=== PATIENT | male | born 1960 | race Caucasian/White ===

== ENCOUNTER 2017-11-07 11:18 | Emergency (ER) | payer MEDICAID ==
[~2017-11-07] VITALS: Ht 172.7 cm; Wt 74.8 kg
[~2017-11-07 11:18] MED LIST: AMLO10TA2 PO; ENAL20TA70 PO; TAMS0.4C36 PO
[2017-11-07 12:49] VITALS: BP 150/95
[2017-11-07] MEDS ORDERED: diphenhdrAMINE HCL 50 MG/1 ML VL IM ONE (13:00)
[2017-11-07] MEDS ORDERED: EPINEPHrine HCL 1 MG/1 ML AMP SC ONE (13:00)
[2017-11-07] MEDS ORDERED: methylPREDNISolone SOD SUCC 125 MG/2 ML VL IM ONE (13:00)
== END 2017-11-07 13:45 | disposition home or self-care (01) ==
LOC: ER 11:18
DX: L25.8 Unspecified contact dermatitis due to other agents (principal); T49.2X5A Adverse effect of local astringents and local detergents, initial encounter; I10 Essential (primary) hypertension; Y92.89 Other specified places as the place of occurrence of the external cause
CPT/HCPCS: 96372; 99284; J0171; J1200; J2930

== ENCOUNTER 2021-10-23 05:05 | Emergency (ER) | payer MEDICAID ==
[~2021-10-23] VITALS: Ht 175.3 cm; Wt 83.9 kg
[~2021-10-23 05:05] MED LIST changes: +AMLO-496 PO; -AMLO10TA2 PO; -ENAL20TA70 PO; +ENAL20TA8 PO
[2021-10-23 07:25] VITALS: BP 147/96
[2021-10-23 07:45] LABS: Urine Bacteria MANY /hpf (None Seen); Urine Blood 2+ /uL (Negative); Urine Mucus FEW (None Seen); Urine Specific Gravity 1.015 (1.001-1.035); Urine WBC 2420 /hpf (0 - 3); Urine WBC Clumps PRESENT /hpf (None Seen)
[2021-10-23] MEDS ORDERED: cefTRIAXone 1GM/50ML D5W 50 ML IV ONE (08:00)
[2021-10-23] MEDS ORDERED: CIPROFLOXACIN 400MG/200ML 200 ML IV ONE (08:00)
[2021-10-23] MEDS ORDERED: SODIUM CHLORIDE 0.9% 1,000 ML IV ONE (08:15)
== END 2021-10-23 10:12 | disposition home or self-care (01) ==
LOC: ER 05:05
DX: N39.0 Urinary tract infection, site not specified (principal); I10 Essential (primary) hypertension; Z79.899 Other long term (current) drug therapy; Z88.2 Allergy status to sulfonamides
CPT/HCPCS: 81001; 96365; 96367; 99284; J0696; J0744; J7030

== ENCOUNTER 2022-01-04 06:19 | Emergency (ER) | payer MEDICAID ==
[~2022-01-04] VITALS: Ht 172.7 cm; Wt 81.6 kg
[2022-01-04 07:32] LABS: Albumin 3.7 g/dL (3.4-5.0); Calcium 8.4 mg/dL (8.5-10.1); Potassium 3.2 mmol/L (3.5-5.1)
[2022-01-04 07:36] LABS: Basophils # (auto) 0 10 ^3/uL (0-0.2); Basophils % (auto) 0.6 % (0.0-2.0); Eosinophils # (auto) 0 10 ^3/uL (0-0.8); Eosinophils % (auto) 0.7 % (0.0-7.0); Hematocrit 37.2 % (41.0-53.0); Hemoglobin 13.1 g/dL (13.5-17.5); Lymphocytes # (auto) 1.2 10 ^3/uL (0.4-5.4); Mean Corpuscular Hemoglobin 31.1 pg (28.0-32.0); Mean Corpuscular Hgb Conc. 35.2 g/dL (32.0-36.0); Mean Corpuscular Volume 88.4 fL (80.0-100.0); Monocytes # (auto) 0.8 10 ^3/uL (0-1.3); Neutrophils # (auto) 4.4 10 ^3/uL (1.6-8.6); Neutrophils % (auto) 67.7 % (37.0-80.0); Nucleated Red Blood Cells % 0.1 %; Red Cell Distribution Width 13.2 % (11.8-14.3); White Blood Cell 6.4 10^3/uL (4.4-10.8)
[2022-01-04 07:39] LABS: BUN/Creatinine Ratio 12.5; Bilirubin, Total 1.1 mg/dL (0.2-1.0); Total Protein 7.3 g/dL (6.4-8.2)
[2022-01-04 07:59] LABS: Urine Bacteria MANY /hpf (None Seen); Urine Blood 2+ /uL (Negative); Urine Specific Gravity 1.017 (1.001-1.035); Urine WBC 4084 /hpf (0 - 3); Urine WBC Clumps PRESENT /hpf (None Seen)
[2022-01-04] MEDS ORDERED: POTASSIUM EFFERVESENT TAB 25 MEQ PO ONE (08:15)
[2022-01-04] MEDS ORDERED: IOHEXOL 300 MG/ML 100ML BOTTLE IJ ONE (08:43)
[2022-01-04] MEDS ORDERED: CIPR-173 PO (10:58)
[2022-01-04 11:06] VITALS: BP 145/91
== END 2022-01-04 11:18 | disposition home or self-care (01) ==
LOC: ER 06:19
DX: N39.0 Urinary tract infection, site not specified (principal); E87.6 Hypokalemia; K59.00 Constipation, unspecified; I10 Essential (primary) hypertension
CPT/HCPCS: 36415; 74177; 80053; 81001; 83690; 84484; 85025; 93005; 99285; Q9967

== ENCOUNTER 2023-08-07 12:42 | Emergency (ER) | payer MEDICAID ==
[~2023-08-07] VITALS: Ht 172.7 cm; Wt 83.0 kg
[~2023-08-07 12:42] MED LIST changes: -AMLO-496 PO; +AMLO1TAB23 PO; +CIPR-173 PO; +ENAL1TAB48 PO; -ENAL20TA8 PO
[2023-08-07] MEDS ORDERED: KETOROLAC TROMETH 30 MG/ML 1ML VIAL IV ONE (13:15)
[2023-08-07 13:21] LABS: Basophils # (auto) 0 10 ^3/uL (0-0.2); Basophils % (auto) 0.4 % (0.0-2.0); Eosinophils # (auto) 0 10 ^3/uL (0-0.8); Eosinophils % (auto) 0.6 % (0.0-7.0); Hematocrit 40.2 % (41.0-53.0); Hemoglobin 14.1 g/dL (13.5-17.5); Lymphocytes # (auto) 1.3 10 ^3/uL (0.4-5.4); Lymphocytes % (auto) 16.1 % (10.0-50.0); Mean Corpuscular Hemoglobin 32.1 pg (28.0-32.0); Mean Corpuscular Volume 91.7 fL (80.0-100.0); Monocytes # (auto) 0.9 10 ^3/uL (0-1.3); Monocytes % (auto) 10.6 % (0.0-12.0); Neutrophils # (auto) 5.9 10 ^3/uL (1.6-8.6); Neutrophils % (auto) 72.3 % (37.0-80.0); Nucleated Red Blood Cells % 0.2 %; Red Blood Cells 4.39 10^6/uL (4.5-5.90); Red Cell Distribution Width 12.8 % (11.8-14.3); White Blood Cell 8.1 10^3/uL (4.4-10.8)
[2023-08-07 13:40] LABS: Urine Bacteria NONE SEEN /hpf (None Seen); Urine Blood Negative /uL (Negative); Urine Clarity Clear (Clear); Urine Color Yellow (Yellow); Urine Protein, UAD TRACE (Negative); Urine Urobilinogen Normal (Negative); Urine WBC <1 /hpf (0 - 3); Urine pH 7.5 (5.0-8.0)
[2023-08-07 13:50] LABS: Alanine Aminotransferase 121 U/L (7-40); Albumin 4.9 g/dL (3.2-4.8); Alkaline Phosphatase 143 U/L (46-116); Anion Gap 7 (5-15); Aspartate Aminotransferase 136 U/L (13-40); BUN/Creatinine Ratio 8.5 (10.0-20.0); Blood Urea Nitrogen 10 mg/dL (9-23); Calcium 9.7 mg/dL (8.7-10.4); Carbon Dioxide 29 mmol/L (20-30); Chloride 100 mmol/L (98-107); Glucose 183 mg/dL (74-106); Potassium 3.5 mmol/L (3.5-5.1); Sodium 136 mmol/L (136-145)
[2023-08-07 13:51] LABS: Bilirubin, Total 1.2 mg/dL (0.2-1.0); Total Protein 7.6 g/dL (5.7-8.2)
[2023-08-07] MEDS ORDERED: IOHEXOL 300 MG/ML 100ML BOTTLE IJ ONE (14:18)
[2023-08-07 15:00] VITALS: PULSE 62; RESP 19; TEMP 98.3; O2SAT 94
[2023-08-07] MEDS ORDERED: OXY5T GT ×3 (16:48→17:28)
[2023-08-07 17:40] VITALS: BP 173/110; PULSE 67; RESP 14; O2SAT 95
== END 2023-08-07 17:46 | disposition home or self-care (01) ==
LOC: ER 12:42
DX: G89.3 Neoplasm related pain (acute) (chronic) (principal); I10 Essential (primary) hypertension; Z85.9 Personal history of malignant neoplasm, unspecified; Z79.899 Other long term (current) drug therapy
CPT/HCPCS: 36415; 74177; 80053; 81001; 85025; 96374; 99285; J1885; Q9967

== ENCOUNTER 2023-08-16 20:35 | Inpatient (IN) | payer MEDICAID ==
[~2023-08-16] VITALS: Ht 170.2 cm; Wt 86.4 kg
[~2023-08-16 20:35] MED LIST changes: +OXY5T GT
[2023-08-16 21:53] LABS: Urine Bacteria NONE SEEN /hpf (None Seen); Urine Blood Negative /uL (Negative); Urine Clarity Clear (Clear); Urine Color Yellow (Yellow); Urine Hyaline Cast MOD /lpf (0 - 2); Urine Protein, UAD TRACE (Negative); Urine Specific Gravity 1.013 (1.001-1.035); Urine Urobilinogen Normal (Negative); Urine WBC 4 /hpf (0 - 3)
[2023-08-16 22:15] LABS: Basophils # (auto) 0.1 10 ^3/uL (0-0.2); Basophils % (auto) 0.6 % (0.0-2.0); Eosinophils # (auto) 0 10 ^3/uL (0-0.8); Eosinophils % (auto) 0.2 % (0.0-7.0); Hematocrit 38.8 % (41.0-53.0); Hemoglobin 13.4 g/dL (13.5-17.5); Lymphocytes # (auto) 0.6 10 ^3/uL (0.4-5.4); Mean Corpuscular Hemoglobin 31.6 pg (28.0-32.0); Mean Corpuscular Hgb Conc. 34.5 g/dL (32.0-36.0); Mean Corpuscular Volume 91.6 fL (80.0-100.0); Monocytes # (auto) 1.2 10 ^3/uL (0-1.3); Monocytes % (auto) 9.3 % (0.0-12.0); Neutrophils # (auto) 10.9 10 ^3/uL (1.6-8.6); Neutrophils % (auto) 84.9 % (37.0-80.0); Nucleated Red Blood Cells % 0.2 %; Red Blood Cells 4.23 10^6/uL (4.5-5.90); Red Cell Distribution Width 13.2 % (11.8-14.3); White Blood Cell 12.8 10^3/uL (4.4-10.8)
[2023-08-16 22:30] LABS: Alanine Aminotransferase 237 U/L (7-40); Albumin 3.9 g/dL (3.2-4.8); Alkaline Phosphatase 236 U/L (46-116); Anion Gap 8 (5-15); Aspartate Aminotransferase 242 U/L (13-40); BUN/Creatinine Ratio 14.4 (10.0-20.0); Bilirubin, Total 2.9 mg/dL (0.2-1.0); Blood Urea Nitrogen 14 mg/dL (9-23); Calcium 9.1 mg/dL (8.7-10.4); Carbon Dioxide 28 mmol/L (20-30); Chloride 94 mmol/L (98-107); Glucose 138 mg/dL (74-106); Lipase 29 U/L (12-53); Potassium 3.3 mmol/L (3.5-5.1); Sodium 130 mmol/L (136-145); Total Protein 6.4 g/dL (5.7-8.2)
[2023-08-16 22:35] LABS: INR 1.14 (0.9-1.15); Partial Thromboplastin Time 27.4 SEC (24.5-34.5); Prothrombin Time 11.9 sec (9.3-11.8)
[2023-08-17] MEDS ORDERED: MORPHINE SULFATE 4 MG/ML SYR/VIAL IM ONE (01:15)
[2023-08-17] MEDS ORDERED: ONDANSETRON HCL 4 MG/2 ML VIAL IM ONE (01:15)
[2023-08-17] MEDS ORDERED: ENALAPRIL MALEATE 10 MG TAB PO ONE (01:30)
[2023-08-17] MEDS ORDERED: amLODIPine BESYLATE 5 MG TAB PO ONE (01:30)
[2023-08-17] MEDS ORDERED: POTASSIUM EFFERVESENT TAB 25 MEQ PO ONE (02:45)
[2023-08-17] MEDS ORDERED: ONDANSETRON HCL 4 MG/2 ML VIAL IV PRN (04:15)
[2023-08-17] MEDS ORDERED: DOCUSATE SOD 100 MG CAP PO PRN (04:15)
[2023-08-17] MEDS ORDERED: MORPHINE SULFATE INJ 2 MG/ml SYRG IV PRN ×2 (04:15→05:00)
[2023-08-17] MEDS ORDERED: HYDROcodone-ACET 5/325MG TAB PO PRN (04:15)
[2023-08-17] MEDS ORDERED: IBUPROFEN 600 MG TAB PO PRN (04:15)
[2023-08-17] MEDS: SODIUM CHLORIDE 0.9% 1,000 ML IV SCH ×2 (04:25→17:48)
[2023-08-17 04:34] LABS: Hematocrit 37.9 % (41.0-53.0); Hemoglobin 13.4 g/dL (13.5-17.5); Mean Corpuscular Hemoglobin 32.3 pg (28.0-32.0); Mean Corpuscular Hgb Conc. 35.5 g/dL (32.0-36.0); Red Blood Cells 4.16 10^6/uL (4.5-5.90); Red Cell Distribution Width 13.2 % (11.8-14.3); White Blood Cell 11.4 10^3/uL (4.4-10.8)
[2023-08-17 04:47] LABS: Band Neutrophils % (manual) 0; Basophils % (manual) 0 (0.0-2.0); Blast Cells 0; Eosinophils % (manual) 0 (0-7); Metamyelocytes % 0; Promyelocytes % 0; Reactive Lymphocytes 0
[2023-08-17 04:51] LABS: Alanine Aminotransferase 248 U/L (7-40); Albumin 4.2 g/dL (3.2-4.8); Alkaline Phosphatase 247 U/L (46-116); Anion Gap 6 (5-15); Aspartate Aminotransferase 268 U/L (13-40); BUN/Creatinine Ratio 15.5 (10.0-20.0); Blood Urea Nitrogen 15 mg/dL (9-23); Calcium 9.4 mg/dL (8.7-10.4); Carbon Dioxide 31 mmol/L (20-30); Chloride 92 mmol/L (98-107); Glucose 186 mg/dL (74-106); Potassium 4.3 mmol/L (3.5-5.1); Sodium 129 mmol/L (136-145)
[2023-08-17 04:52] LABS: Bilirubin, Total 2.7 mg/dL (0.2-1.0); Total Protein 7.2 g/dL (5.7-8.2)
[2023-08-17] MEDS ORDERED: NITROGLYCERIN 0.4 MG SL TAB SL PRN (05:00)
[2023-08-17] MEDS: cefTRIAXone 1GM/50ML D5W 50 ML IV SCH (05:09)
[2023-08-17] MEDS ORDERED: MORPHINE SULFATE INJ 2 MG/ml SYRG IM ONE (07:00)
[2023-08-17 09:31] VITALS: PULSE 70; RESP 15; O2SAT 94
[2023-08-17] MEDS: ENALAPRIL MALEATE 10 MG TAB PO SCH ×2 (10:15→21:32)
[2023-08-17 12:55] LABS: Lymphocytes % (manual) 7 (10.0-50.0); Monocytes % (manual) 4 (0-12); Myelocytes % 4; Platelet Estimate Adequate
[2023-08-17 15:16] LABS: Urine Bacteria NONE SEEN /hpf (None Seen); Urine Blood Negative /uL (Negative); Urine Clarity Clear (Clear); Urine Color Yellow (Yellow); Urine Protein, UAD Negative (Negative); Urine Specific Gravity 1.006 (1.001-1.035); Urine Urobilinogen Normal (Negative); Urine WBC 1 /hpf (0 - 3); Urine pH 6.5 (5.0-8.0)
[2023-08-17] MEDS: hydrALAZINE HCL 20 MG/ML VL IV PRN ×2 (15:16→23:38)
[2023-08-17 17:00] VITALS: BP 146/98; PULSE 97; RESP 19; TEMP 98.2; O2SAT 93
[2023-08-17] MEDS: TAMSULOSIN HYDROCHLORIDE 0.4 MG CAP PO SCH (17:47)
[2023-08-17] MEDS ORDERED: TERA2CAP45 PO (19:01)
[2023-08-17] MEDS ORDERED: METO-289 PO (19:01)
[2023-08-17 20:00] VITALS: BP 172/87; PULSE 112; PULSE 87; RESP 18; RESP 20; TEMP 98.1; O2SAT 96
[2023-08-17] MEDS: metroNIDAZOLE 500MG/100ML 100 ML IV SCH (21:21)
[2023-08-17 22:00] VITALS: BP 170/95; PULSE 77; RESP 16; TEMP 98.1; O2SAT 94
[2023-08-17] MEDS: HYDROmorphone HCL 2 MG/ML VL/or syr IV PRN (22:40)
[2023-08-18] VITALS (7 sets, daily range): BP systolic 165–186; BP diastolic 77–98; PULSE 69–97; RESP 16–19; TEMP 97.7–98.6; O2SAT 90–94
[2023-08-18] MEDS: SODIUM CHLORIDE 0.9% 1,000 ML IV SCH ×2 (03:05→23:09)
[2023-08-18] MEDS: metroNIDAZOLE 500MG/100ML 100 ML IV SCH ×3 (05:37→22:21)
[2023-08-18] MEDS: hydrALAZINE HCL 20 MG/ML VL IV PRN ×4 (05:47→21:00)
[2023-08-18 06:36] LABS: Basophils # (auto) 0 10 ^3/uL (0-0.2); Basophils % (auto) 0.2 % (0.0-2.0); Eosinophils # (auto) 0 10 ^3/uL (0-0.8); Eosinophils % (auto) 0.1 % (0.0-7.0); Hematocrit 38.6 % (41.0-53.0); Hemoglobin 13.3 g/dL (13.5-17.5); Lymphocytes # (auto) 0.7 10 ^3/uL (0.4-5.4); Lymphocytes % (auto) 5.3 % (10.0-50.0); Mean Corpuscular Hemoglobin 31.8 pg (28.0-32.0); Mean Corpuscular Hgb Conc. 34.5 g/dL (32.0-36.0); Mean Corpuscular Volume 92.4 fL (80.0-100.0); Monocytes # (auto) 1.3 10 ^3/uL (0-1.3); Monocytes % (auto) 10.5 % (0.0-12.0); Neutrophils # (auto) 10.5 10 ^3/uL (1.6-8.6); Neutrophils % (auto) 83.9 % (37.0-80.0); Nucleated Red Blood Cells % 0.2 %; Red Blood Cells 4.18 10^6/uL (4.5-5.90); Red Cell Distribution Width 13.2 % (11.8-14.3); White Blood Cell 12.5 10^3/uL (4.4-10.8)
[2023-08-18 06:54] LABS: Alanine Aminotransferase 207 U/L (7-40); Albumin 3.8 g/dL (3.2-4.8); Alkaline Phosphatase 213 U/L (46-116); Anion Gap 8 (5-15); Aspartate Aminotransferase 195 U/L (13-40); BUN/Creatinine Ratio 9.2 (10.0-20.0); Bilirubin, Total 3.8 mg/dL (0.2-1.0); Blood Urea Nitrogen 7 mg/dL (9-23); Calcium 8.8 mg/dL (8.7-10.4); Carbon Dioxide 28 mmol/L (20-30); Chloride 100 mmol/L (98-107); Glucose 190 mg/dL (74-106); Magnesium 2.5 mg/dL (1.6-2.6); Potassium 3.1 mmol/L (3.5-5.1); Total Protein 6.6 g/dL (5.7-8.2)
[2023-08-18 07:08] LABS: Sodium 136 mmol/L (136-145)
[2023-08-18] MEDS: amLODIPine BESYLATE 5 MG TAB PO SCH (09:43)
[2023-08-18] MEDS: ENALAPRIL MALEATE 10 MG TAB PO SCH ×2 (09:44→22:21)
[2023-08-18] MEDS: cefTRIAXone 1GM/50ML D5W 50 ML IV SCH (09:44)
[2023-08-18] MEDS ORDERED: POTASSIUM CHL 20 Meq TABLET PO ONE (11:45)
[2023-08-18] MEDS ORDERED: LORazepam 2MG/ML-1ML VIAL IV ONE (13:45)
[2023-08-18] MEDS: TAMSULOSIN HYDROCHLORIDE 0.4 MG CAP PO SCH (17:21)
[2023-08-18] MEDS: KETOROLAC TROMETH 30 MG/ML 1ML VIAL IV PRN (18:47)
[2023-08-19] MEDS: hydrALAZINE HCL 20 MG/ML VL IV PRN (04:06)
[2023-08-19 04:52] VITALS: BP 180/103; PULSE 85; RESP 16; TEMP 98.4; O2SAT 94
[2023-08-19] MEDS: metroNIDAZOLE 500MG/100ML 100 ML IV SCH ×4 (05:47→22:04)
[2023-08-19] MEDS ORDERED: LIDOCAINE 2%HCL (LOCAL ANESTH.) INJ 10ml MDV ONE (07:37)
[2023-08-19] MEDS ORDERED: MIDAZOLAM HCL 2MG/2ML 2ml VIAL (1mg/ml) ONE (07:40)
[2023-08-19] MEDS ORDERED: fentaNYL CITRATE 100 MCG/2 ML VL ONE (07:40)
[2023-08-19] MEDS ORDERED: fentaNYL CITRATE 100 MCG/2 ML VL IV ONE (07:45)
[2023-08-19] MEDS ORDERED: MIDAZOLAM HCL 2MG/2ML 2ml VIAL (1mg/ml) IV ONE (07:45)
[2023-08-19 08:00] VITALS: PULSE 101
[2023-08-19 08:44] VITALS: BP 154/83; PULSE 100; RESP 17; TEMP 97.7; O2SAT 91
[2023-08-19] MEDS ORDERED: POTASSIUM CHL 20 Meq TABLET PO ONE (09:15)
[2023-08-19] MEDS: KETOROLAC TROMETH 30 MG/ML 1ML VIAL IV PRN (09:18)
[2023-08-19] MEDS: ENALAPRIL MALEATE 10 MG TAB PO SCH ×2 (09:19→22:11)
[2023-08-19] MEDS: cefTRIAXone 1GM/50ML D5W 50 ML IV SCH (09:19)
[2023-08-19] MEDS: amLODIPine BESYLATE 5 MG TAB PO SCH (12:58)
[2023-08-19] MEDS: ALPRAZolam 0.25 MG TAB PO PRN (13:00)
[2023-08-19] MEDS: SODIUM CHLORIDE 0.9% 1,000 ML IV SCH (14:16)
[2023-08-19] MEDS: TAMSULOSIN HYDROCHLORIDE 0.4 MG CAP PO SCH (18:31)
[2023-08-19 20:00] VITALS: BP 187/106; PULSE 64; PULSE 82; RESP 20; TEMP 98.1; O2SAT 92
[2023-08-19 22:00] VITALS: BP 187/106; PULSE 82; RESP 20; TEMP 97.8; O2SAT 92
[2023-08-19] MEDS: HYDROmorphone HCL 2 MG/ML VL/or syr IV PRN (22:10)
[2023-08-20] VITALS (8 sets, daily range): BP systolic 122–167; BP diastolic 76–101; PULSE 67–99; RESP 16–23; TEMP 97.5–98.4; O2SAT 93–99
[2023-08-20] MEDS: SODIUM CHLORIDE 0.9% 1,000 ML IV SCH ×2 (03:45→18:03)
[2023-08-20] MEDS: hydrALAZINE HCL 20 MG/ML VL IV PRN ×2 (05:10→22:29)
[2023-08-20] MEDS: metroNIDAZOLE 500MG/100ML 100 ML IV SCH ×3 (06:03→21:45)
[2023-08-20] MEDS: cefTRIAXone 1GM/50ML D5W 50 ML IV SCH (09:24)
[2023-08-20] MEDS: ENALAPRIL MALEATE 10 MG TAB PO SCH ×2 (09:25→21:51)
[2023-08-20 11:31] LABS: Basophils # (auto) 0 10 ^3/uL (0-0.2); Basophils % (auto) 0.1 % (0.0-2.0); Eosinophils # (auto) 0 10 ^3/uL (0-0.8); Eosinophils % (auto) 0.1 % (0.0-7.0); Hematocrit 45.1 % (41.0-53.0); Hemoglobin 14.6 g/dL (13.5-17.5); Lymphocytes % (auto) 6.8 % (10.0-50.0); Mean Corpuscular Hemoglobin 31.5 pg (28.0-32.0); Mean Corpuscular Hgb Conc. 32.3 g/dL (32.0-36.0); Mean Corpuscular Volume 97.5 fL (80.0-100.0); Monocytes # (auto) 1.5 10 ^3/uL (0-1.3); Monocytes % (auto) 10.7 % (0.0-12.0); Neutrophils # (auto) 11.8 10 ^3/uL (1.6-8.6); Neutrophils % (auto) 82.3 % (37.0-80.0); Nucleated Red Blood Cells % 0.2 %; Red Blood Cells 4.62 10^6/uL (4.5-5.90); Red Cell Distribution Width 14.2 % (11.8-14.3); White Blood Cell 14.4 10^3/uL (4.4-10.8)
[2023-08-20] MEDS: amLODIPine BESYLATE 5 MG TAB PO SCH (11:37)
[2023-08-20] MEDS ORDERED: LORazepam 2MG/ML-1ML VIAL IV ONE (12:00)
[2023-08-20 13:01] LABS: Alanine Aminotransferase 296 U/L (7-40); Albumin 3.9 g/dL (3.2-4.8); Alkaline Phosphatase 301 U/L (46-116); Anion Gap 14 (5-15); Aspartate Aminotransferase 350 U/L (13-40); BUN/Creatinine Ratio 11.3 (10.0-20.0); Bilirubin, Total 7.2 mg/dL (0.2-1.0); Blood Urea Nitrogen 11 mg/dL (9-23); Calcium 8.9 mg/dL (8.7-10.4); Carbon Dioxide 23 mmol/L (20-30); Chloride 97 mmol/L (98-107); Glucose 168 mg/dL (74-106); Magnesium 2.1 mg/dL (1.6-2.6); Sodium 134 mmol/L (136-145); Total Protein 6.5 g/dL (5.7-8.2)
[2023-08-20 13:15] LABS: Potassium 2.7 mmol/L (3.5-5.1)
[2023-08-20] MEDS: CIPROFLOXACIN 400MG/200ML 200 ML IV SCH (16:39)
[2023-08-20] MEDS: KETOROLAC TROMETH 30 MG/ML 1ML VIAL IV PRN ×2 (16:40→23:52)
[2023-08-20] MEDS: POTASSIUM CHL 20MEQ/100ML 100 ML IV SCH ×2 (18:11→20:10)
[2023-08-20] MEDS: TAMSULOSIN HYDROCHLORIDE 0.4 MG CAP PO SCH (18:32)
[2023-08-21] VITALS (8 sets, daily range): BP systolic 158–187; BP diastolic 93–105; PULSE 72–100; RESP 16–19; TEMP 97.8–98.5; O2SAT 90–96
[2023-08-21] MEDS: ALPRAZolam 0.25 MG TAB PO PRN (01:51)
[2023-08-21] MEDS: CIPROFLOXACIN 400MG/200ML 200 ML IV SCH ×2 (04:44→16:26)
[2023-08-21] MEDS: metroNIDAZOLE 500MG/100ML 100 ML IV SCH ×3 (05:49→21:04)
[2023-08-21 06:06] LABS: PSA Free <0.02 ng/mL; Prostate Specific Antigen <0.1 ng/mL (0.0-4.0)
[2023-08-21 06:09] LABS: Alanine Aminotransferase 234 U/L (7-40); Alkaline Phosphatase 233 U/L (46-116); Anion Gap 8 (5-15); Calcium 8.5 mg/dL (8.7-10.4); Carbon Dioxide 28 mmol/L (20-30); Chloride 102 mmol/L (98-107); Sodium 138 mmol/L (136-145)
[2023-08-21 06:10] LABS: BUN/Creatinine Ratio 6.8 (10.0-20.0); Blood Urea Nitrogen 5 mg/dL (9-23); Glucose 130 mg/dL (74-106)
[2023-08-21 06:11] LABS: Albumin 3.3 g/dL (3.2-4.8); Aspartate Aminotransferase 250 U/L (13-40)
[2023-08-21 06:12] LABS: Bilirubin, Total 6.4 mg/dL (0.2-1.0); Total Protein 5.6 g/dL (5.7-8.2)
[2023-08-21 06:40] LABS: Potassium 2.6 mmol/L (3.5-5.1)
[2023-08-21] MEDS ORDERED: POTASSIUM CHL 20 Meq TABLET PO ONE ×2 (07:00→10:30)
[2023-08-21] MEDS: SODIUM CHLORIDE 0.9% 1,000 ML IV SCH (08:47)
[2023-08-21] MEDS: amLODIPine BESYLATE 5 MG TAB PO SCH ×2 (10:00→12:15)
[2023-08-21] MEDS: ENALAPRIL MALEATE 10 MG TAB PO SCH ×2 (10:12→21:04)
[2023-08-21] MEDS: SOD CHL 0.9%/ KCL 20MEQ 1,000 ML IV SCH ×2 (12:59→23:50)
[2023-08-21] MEDS: TAMSULOSIN HYDROCHLORIDE 0.4 MG CAP PO SCH ×2 (16:26→17:33)
[2023-08-21] MEDS: KETOROLAC TROMETH 30 MG/ML 1ML VIAL IV PRN (16:26)
[2023-08-21] MEDS ORDERED: HYDROmorphone HCL 2 MG TAB PO PRN (17:00)
[2023-08-21] MEDS: hydrALAZINE HCL 20 MG/ML VL IV PRN (22:29)
[2023-08-21] MEDS: MORPHINE SULF 30 mg ER tab PO SCH (22:39)
[2023-08-22] MEDS: CIPROFLOXACIN 400MG/200ML 200 ML IV SCH ×2 (05:12→16:00)
[2023-08-22] MEDS: hydrALAZINE HCL 20 MG/ML VL IV PRN (05:24)
[2023-08-22 05:25] VITALS: BP 153/73; PULSE 112; RESP 20; TEMP 97.8; O2SAT 95
[2023-08-22] MEDS: metroNIDAZOLE 500MG/100ML 100 ML IV SCH ×2 (06:33→14:03)
[2023-08-22 06:42] LABS: Hematocrit 39.9 % (41.0-53.0); Hemoglobin 13.9 g/dL (13.5-17.5); Mean Corpuscular Hemoglobin 32.4 pg (28.0-32.0); Mean Corpuscular Hgb Conc. 34.9 g/dL (32.0-36.0); Mean Corpuscular Volume 93.1 fL (80.0-100.0); Red Blood Cells 4.28 10^6/uL (4.5-5.90); Red Cell Distribution Width 13.7 % (11.8-14.3); White Blood Cell 19.3 10^3/uL (4.4-10.8)
[2023-08-22 06:55] LABS: Alanine Aminotransferase 274 U/L (7-40); Albumin 3.9 g/dL (3.2-4.8); Alkaline Phosphatase 302 U/L (46-116); Anion Gap 11 (5-15); Aspartate Aminotransferase 288 U/L (13-40); Blood Urea Nitrogen 6 mg/dL (9-23); Calcium 8.7 mg/dL (8.7-10.4); Carbon Dioxide 24 mmol/L (20-30); Chloride 94 mmol/L (98-107); Glucose 172 mg/dL (74-106); Magnesium 1.9 mg/dL (1.6-2.6)
[2023-08-22 06:57] LABS: Bilirubin, Total 10.9 mg/dL (0.2-1.0); Total Protein 6.6 g/dL (5.7-8.2)
[2023-08-22 07:02] LABS: Basophils % (manual) 0 (0.0-2.0); Blast Cells 0; Eosinophils % (manual) 0 (0-7); Promyelocytes % 0; Reactive Lymphocytes 0
[2023-08-22 07:04] LABS: BUN/Creatinine Ratio 8.5 (10.0-20.0)
[2023-08-22 07:13] LABS: Sodium 129 mmol/L (136-145)
[2023-08-22 07:15] LABS: Potassium 2.6 mmol/L (3.5-5.1)
[2023-08-22 07:50] LABS: Band Neutrophils % (manual) 5; Lymphocytes % (manual) 6 (10.0-50.0); Metamyelocytes % 6; Monocytes % (manual) 7 (0-12); Myelocytes % 1; Platelet Estimate Adequate
[2023-08-22 08:00] VITALS: PULSE 92; RESP 16
[2023-08-22 09:00] VITALS: BP 189/98; PULSE 93; RESP 19; TEMP 97.8; O2SAT 93
[2023-08-22] MEDS ORDERED: POTASSIUM CHL 20 Meq TABLET PO ONE (09:45)
[2023-08-22] MEDS: ENALAPRIL MALEATE 10 MG TAB PO SCH (10:12)
[2023-08-22] MEDS: amLODIPine BESYLATE 5 MG TAB PO SCH (10:12)
[2023-08-22] MEDS: MORPHINE SULF 30 mg ER tab PO SCH (10:12)
[2023-08-22 13:00] VITALS: BP 186/98; PULSE 86; RESP 18; TEMP 98; O2SAT 93
[2023-08-22] MEDS: SOD CHL 0.9%/ KCL 20MEQ 1,000 ML IV SCH (13:10)
[2023-08-22 14:22] LABS: Chloride 95 mmol/L (98-107); Sodium 131 mmol/L (136-145)
[2023-08-22 14:23] LABS: Anion Gap 10 (5-15); Calcium 8.6 mg/dL (8.5-10.1); Carbon Dioxide 26 mmol/L (20-30)
[2023-08-22 14:28] LABS: Blood Urea Nitrogen 5 mg/dL (9-23); Glucose 199 mg/dL (74-106)
[2023-08-22 14:43] LABS: BUN/Creatinine Ratio 6.7 (10.0-20.0)
[2023-08-25 11:15] LABS: Hepatitis B Core Total AB Negative (Negative)
[2023-08-25 12:24] LABS: Hepatitis A Total Antibody Positive (Negative)
[2023-08-25 12:25] LABS: Hepatitis B Surface Antibody Negative (Negative); Hepatitis B Surface Antigen Negative (Negative); Hepatitis C Antibody Negative (Negative)
== END 2023-08-22 15:00 | disposition left against medical advice (07) | DRG 681 ==
LOC: ER 20:35 → TELE 08-17 04:57 → TELE-WESTW 08-17 17:14
PROVIDERS: ADMIT Nurse Practitioner Family; ATTEND Internal Medicine Geriatric Medicine
PROC: 07BD3ZX Excision of Aortic Lymphatic, Percutaneous Approach, Diagnostic (ICD-10-PCS; principal; 2023-08-19)
DX: C7A.1 Malignant poorly differentiated neuroendocrine tumors (principal); C61 Malignant neoplasm of prostate; D73.89 Other diseases of spleen; R16.2 Hepatomegaly with splenomegaly, not elsewhere classified; E87.1 Hypo-osmolality and hyponatremia; E87.8 Other disorders of electrolyte and fluid balance, not elsewhere classified; D72.829 Elevated white blood cell count, unspecified; R59.0 Localized enlarged lymph nodes; G89.3 Neoplasm related pain (acute) (chronic); I16.0 Hypertensive urgency; E87.6 Hypokalemia; Z53.29 Procedure and treatment not carried out because of patient's decision for other reasons; I10 Essential (primary) hypertension; K76.9 Liver disease, unspecified; R79.89 Other specified abnormal findings of blood chemistry; K59.00 Constipation, unspecified; K57.90 Diverticulosis of intestine, part unspecified, without perforation or abscess without bleeding; F41.9 Anxiety disorder, unspecified; Z80.42 Family history of malignant neoplasm of prostate; Z82.49 Family history of ischemic heart disease and other diseases of the circulatory system; Z82.5 Family history of asthma and other chronic lower respiratory diseases; Z83.3 Family history of diabetes mellitus; Z85.46 Personal history of malignant neoplasm of prostate; Z92.3 Personal history of irradiation; Z88.2 Allergy status to sulfonamides; Z91.041 Radiographic dye allergy status
CPT/HCPCS: 10005; 36415; 71250; 74150; 74176; 74181; 76700; 77012; 80048; 80053; 81001; 82105; 82378; 83615; 83690; 83735; 84154; 85007; 85025; 85027; 85610; 85730; 86301; 86704; 86706; 86708; 86803; 87081; 87340; G0378; J0696; J1885; J2001; J2250; J2405; J3480; J3490

== ENCOUNTER 2023-08-23 11:36 | Inpatient (IN) | payer MEDICAID ==
[~2023-08-23] VITALS: Ht 177.8 cm; Wt 82.0 kg
[~2023-08-23 11:36] MED LIST changes: -CIPR-173 PO; +METO-289 PO; -OXY5T GT; -TAMS0.4C36 PO; +TERA2CAP45 PO
[2023-08-23 13:28] LABS: Basophils # (auto) 0.1 10 ^3/uL (0-0.2); Basophils % (auto) 0.4 % (0.0-2.0); Eosinophils # (auto) 0 10 ^3/uL (0-0.8); Eosinophils % (auto) 0.1 % (0.0-7.0); Hematocrit 37.5 % (41.0-53.0); Hemoglobin 12.8 g/dL (13.5-17.5); Lymphocytes # (auto) 0.7 10 ^3/uL (0.4-5.4); Lymphocytes % (auto) 4.5 % (10.0-50.0); Mean Corpuscular Hemoglobin 32.5 pg (28.0-32.0); Mean Corpuscular Hgb Conc. 34.2 g/dL (32.0-36.0); Mean Corpuscular Volume 94.9 fL (80.0-100.0); Monocytes # (auto) 1.4 10 ^3/uL (0-1.3); Monocytes % (auto) 9.3 % (0.0-12.0); Neutrophils # (auto) 12.7 10 ^3/uL (1.6-8.6); Neutrophils % (auto) 85.7 % (37.0-80.0); Nucleated Red Blood Cells % 0.4 %; Red Blood Cells 3.95 10^6/uL (4.5-5.90); Red Cell Distribution Width 14.3 % (11.8-14.3); White Blood Cell 14.9 10^3/uL (4.4-10.8)
[2023-08-23 13:57] LABS: Alanine Aminotransferase 238 U/L (7-40); Albumin 3.5 g/dL (3.2-4.8); Alkaline Phosphatase 293 U/L (46-116); Aspartate Aminotransferase 302 U/L (13-40); Bilirubin, Total 11.1 mg/dL (0.2-1.0); Calcium 8.8 mg/dL (8.7-10.4); Chloride 95 mmol/L (98-107); Glucose 150 mg/dL (74-106); INR 1.33 (0.9-1.15); Partial Thromboplastin Time 25.3 SEC (24.5-34.5); Prothrombin Time 13.7 sec (9.3-11.8); Sodium 128 mmol/L (136-145); Total Protein 6.1 g/dL (5.7-8.2)
[2023-08-23 14:11] LABS: Potassium 2.9 mmol/L (3.5-5.1)
[2023-08-23 14:40] LABS: Anion Gap 12 (5-15); Carbon Dioxide 21 mmol/L (20-30)
[2023-08-23 14:41] LABS: BUN/Creatinine Ratio 11.9 (10.0-20.0); Blood Urea Nitrogen 10 mg/dL (9-23)
[2023-08-23 14:44] LABS: Lactic Acid w/Reflex 5.6 mmol/L (0.4-2.0)
[2023-08-23 14:55] LABS: Urine Bacteria NONE SEEN /hpf (None Seen); Urine Blood Negative /uL (Negative); Urine Clarity HAZY (Clear); Urine Color Amber (Yellow); Urine Hyaline Cast MOD /lpf (0 - 2); Urine Mucus FEW (None Seen); Urine Protein, UAD 1+ (Negative); Urine Specific Gravity 1.019 (1.001-1.035); Urine WBC 8 /hpf (0 - 3)
[2023-08-23] MEDS ORDERED: POTASSIUM EFFERVESENT TAB 25 MEQ PO ONE (15:15)
[2023-08-23] MEDS ORDERED: LACTATED RINGER'S 1,000 ML IV ONE (15:15)
[2023-08-23] MEDS ORDERED: HYDROmorphone HCL 2 MG/ML VL/or syr IV ONE (16:15)
[2023-08-23] MEDS ORDERED: ONDANSETRON HCL 4 MG/2 ML VIAL IV ONE (16:15)
[2023-08-23] MEDS ORDERED: DOCUSATE SOD 100 MG CAP PO PRN (17:00)
[2023-08-23] MEDS ORDERED: TEMAZEPAM 15 MG CAP PO PRN (17:00)
[2023-08-23] MEDS ORDERED: ONDANSETRON HCL 4 MG/2 ML VIAL IV PRN (17:00)
[2023-08-23] MEDS ORDERED: VANCOMYCIN PER PHARMACY 0 MG IV SCH (17:30)
[2023-08-23] MEDS ORDERED: CEFEPIME 1GM/ 50ML 50 ML IV ONE (17:45)
[2023-08-23] MEDS ORDERED: VANCOMYCIN 1GM/250ML 250 ML IV ONE (18:30)
[2023-08-23] MEDS: CEFEPIME 1GM/ 50ML 50 ML IV SCH (22:00)
[2023-08-23] MEDS: ENALAPRIL MALEATE 10 MG TAB PO SCH (22:49)
[2023-08-23] MEDS: amLODIPine BESYLATE 5 MG TAB PO SCH (22:50)
[2023-08-23] MEDS: SODIUM CHLORIDE 0.9% 1,000 ML IV SCH (23:27)
[2023-08-23 23:42] VITALS: PULSE 92; RESP 18; O2SAT 92
[2023-08-24] VITALS (9 sets, daily range): BP systolic 120–180; BP diastolic 63–113; PULSE 78–100; RESP 14–18; TEMP 97.4–98.6; O2SAT 91–98
[2023-08-24] MEDS: MORPHINE SULFATE INJ 2 MG/ml SYRG IV PRN ×5 (00:25→22:34)
[2023-08-24] MEDS: SODIUM CHLORIDE 0.9% 1,000 ML IV SCH ×3 (03:30→23:30)
[2023-08-24] MEDS: CEFEPIME 1GM/ 50ML 50 ML IV SCH ×3 (05:06→22:27)
[2023-08-24 05:26] LABS: Hematocrit 35.8 % (41.0-53.0); Hemoglobin 12.3 g/dL (13.5-17.5); Mean Corpuscular Hemoglobin 32.3 pg (28.0-32.0); Mean Corpuscular Hgb Conc. 34.2 g/dL (32.0-36.0); Mean Corpuscular Volume 94.3 fL (80.0-100.0); White Blood Cell 15.6 10^3/uL (4.4-10.8)
[2023-08-24 05:37] LABS: Basophils % (manual) 0 (0.0-2.0); Blast Cells 0; Eosinophils % (manual) 0 (0-7); Promyelocytes % 0; Reactive Lymphocytes 0
[2023-08-24 06:08] LABS: Alanine Aminotransferase 252 U/L (7-40); Alkaline Phosphatase 322 U/L (46-116); Anion Gap 10 (5-15); Blood Urea Nitrogen 15 mg/dL (9-23); Calcium 8.7 mg/dL (8.7-10.4); Carbon Dioxide 25 mmol/L (20-30); Chloride 95 mmol/L (98-107); Glucose 174 mg/dL (74-106); Potassium 3.2 mmol/L (3.5-5.1); Sodium 130 mmol/L (136-145)
[2023-08-24 06:09] LABS: Albumin 3.3 g/dL (3.2-4.8); Aspartate Aminotransferase 594 U/L (13-40)
[2023-08-24 06:10] LABS: BUN/Creatinine Ratio 14.6 (10.0-20.0); Bilirubin, Total 11.9 mg/dL (0.2-1.0); Total Protein 5.7 g/dL (5.7-8.2)
[2023-08-24 07:18] LABS: Band Neutrophils % (manual) 9; Lymphocytes % (manual) 3 (10.0-50.0); Metamyelocytes % 2; Monocytes % (manual) 13 (0-12); Myelocytes % 1; Platelet Estimate Decreased; Smudge Cells 1 /100 WBC
[2023-08-24] MEDS ORDERED: POTASSIUM CHL 20 Meq TABLET PO ONE (09:30)
[2023-08-24] MEDS: ENALAPRIL MALEATE 10 MG TAB PO SCH ×2 (09:52→22:30)
[2023-08-24] MEDS: amLODIPine BESYLATE 5 MG TAB PO SCH (09:53)
[2023-08-24] MEDS: METOPROLOL SUCCINATE XL 50 MG TAB PO SCH (09:54)
[2023-08-24] MEDS: VANCOMYCIN 750mg/250ml 250 ML IV SCH (13:04)
[2023-08-25] VITALS (8 sets, daily range): BP systolic 146–172; BP diastolic 71–95; PULSE 77–96; RESP 16–18; TEMP 36.4; O2SAT 92–94
[2023-08-25] MEDS: VANCOMYCIN 750mg/250ml 250 ML IV SCH ×2 (01:13→13:00)
[2023-08-25] MEDS: MORPHINE SULFATE INJ 2 MG/ml SYRG IV PRN ×3 (02:55→13:20)
[2023-08-25] MEDS: CEFEPIME 1GM/ 50ML 50 ML IV SCH ×2 (06:01→14:00)
[2023-08-25 06:02] LABS: Hematocrit 35.5 % (41.0-53.0); Hemoglobin 12.2 g/dL (13.5-17.5); Mean Corpuscular Hemoglobin 32.4 pg (28.0-32.0); Mean Corpuscular Hgb Conc. 34.5 g/dL (32.0-36.0); Red Blood Cells 3.77 10^6/uL (4.5-5.90); Red Cell Distribution Width 14.6 % (11.8-14.3); White Blood Cell 17.1 10^3/uL (4.4-10.8)
[2023-08-25 06:21] LABS: Basophils % (manual) 0 (0.0-2.0); Blast Cells 0; Metamyelocytes % 0; Myelocytes % 0; Promyelocytes % 0; Reactive Lymphocytes 0
[2023-08-25 06:47] LABS: Alanine Aminotransferase 279 U/L (7-40); Albumin 3.2 g/dL (3.2-4.8); Alkaline Phosphatase 320 U/L (46-116); Aspartate Aminotransferase 488 U/L (13-40); Calcium 8.4 mg/dL (8.5-10.1); Chloride 96 mmol/L (98-107); Glucose 101 mg/dL (74-106); Total Protein 5.6 g/dL (5.7-8.2)
[2023-08-25 08:40] LABS: Band Neutrophils % (manual) 5; Eosinophils % (manual) 1 (0-7); Lymphocytes % (manual) 6 (10.0-50.0)
[2023-08-25 08:41] LABS: Monocytes % (manual) 10 (0-12)
[2023-08-25 08:42] LABS: Platelet Estimate Decreased; RBC Morphology Normal
[2023-08-25] MEDS: amLODIPine BESYLATE 5 MG TAB PO SCH (09:06)
[2023-08-25] MEDS: METOPROLOL SUCCINATE XL 50 MG TAB PO SCH (09:06)
[2023-08-25] MEDS: ENALAPRIL MALEATE 10 MG TAB PO SCH (09:25)
[2023-08-25] MEDS ORDERED: POTASSIUM CHL 20 Meq TABLET PO ONE (09:30)
[2023-08-25 11:07] LABS: Hepatitis B Surface Antigen Negative (Negative)
[2023-08-25] MEDS: SODIUM CHLORIDE 0.9% 1,000 ML IV SCH (11:25)
[2023-08-25 11:28] LABS: Hepatitis C Antibody Negative (Negative)
[2023-08-25 12:59] LABS: Blood Urea Nitrogen 12 mg/dL (9-23); Sodium 132 mmol/L (136-145)
[2023-08-25 13:00] LABS: Potassium 3.4 mmol/L (3.5-5.1)
[2023-08-25 13:21] LABS: Anion Gap 12 (5-15); Carbon Dioxide 24 mmol/L (20-30)
[2023-08-25 13:27] LABS: Magnesium 1.9 mg/dL (1.6-2.6)
[2023-08-25] MEDS ORDERED: VANCOMYCIN 1GM/250ML 250 ML IV SCH (14:00)
== END 2023-08-25 18:21 | disposition hospice, home (50) | DRG 720 ==
LOC: ER 11:36 → TELE 17:19 → TELE-EAST 23:56
PROVIDERS: ADMIT Nurse Practitioner Family; ATTEND Internal Medicine Geriatric Medicine
DX: A41.9 Sepsis, unspecified organism (principal); K72.90 Hepatic failure, unspecified without coma; C7B.8 Other secondary neuroendocrine tumors; D69.6 Thrombocytopenia, unspecified; K83.1 Obstruction of bile duct; E87.1 Hypo-osmolality and hyponatremia; C7A.1 Malignant poorly differentiated neuroendocrine tumors; R62.7 Adult failure to thrive; R56.9 Unspecified convulsions; B96.89 Other specified bacterial agents as the cause of diseases classified elsewhere; E86.0 Dehydration; I10 Essential (primary) hypertension; R26.9 Unspecified abnormalities of gait and mobility; D64.9 Anemia, unspecified; E87.6 Hypokalemia; Z85.46 Personal history of malignant neoplasm of prostate; Z68.25 Body mass index [BMI] 25.0-25.9, adult; Z91.041 Radiographic dye allergy status; Z88.2 Allergy status to sulfonamides; Z51.5 Encounter for palliative care
CPT/HCPCS: 36415; 71045; 71250; 74176; 80053; 80202; 81001; 83605; 83735; 83930; 83935; 84132; 84300; 85007; 85025; 85027; 85610; 85730; 86803; 87040; 87077; 87340; 96365; 96375; G0378; J2405